=== PATIENT | male | born 1940 | race Caucasian/White ===

== ENCOUNTER 2020-11-14 15:28 | Outpatient (CLI) | payer MEDICARE ==
--- NOTE | 2020-11-14 16:54 | Ultrasound Report ---
PROCEDURE: Abdomen Limited INDICATIONS: RIGHT LOWER ABDOMEN MASS TECHNIQUE: Real-time focused scanning was performed of the abdomen, with image documentation. COMPARISON: None FINDINGS: Hernias identified in the region of clinical interest. Hernia contains unremarkable appear ing loops of bowel. Hernia is reducible in supine position and nonreducible in standing position. Her zoie neck measures approximately 0.7 x 0.5 cm. IMPRESSION: Bowel containing hernia identified in the area of clinical interest. Hernia is reducible in the supin e position and nonreducible in the standing position. Reviewed by: Jolanta Alejo MD, PhD on 11/14/2020 4:53 PM PDT Approved by: Jolanta Alejo MD, PhD on 11/14/2020 4:53 PM PDT Station ID: [id number]
== END 2020-11-14 15:29 | disposition home or self-care (01) ==
LOC: DI 15:28
PROVIDERS: ATTEND Physician Assistant
DX: K46.9 Unspecified abdominal hernia without obstruction or gangrene (principal)

== ENCOUNTER 2021-11-29 08:37 | Emergency (ER) | payer MEDICARE ==
[2021-11-29 08:49] VITALS: BP 146/71
--- NOTE | 2021-11-29 09:21 | ED Physician Documentation ---
PD HPI UPPER EXT INJURY - Stated complaint Stated Complaint: RT FINGER LAC - Chief complaint Chief Complaint: Laceration - History obtained from History obtained from: Patient - History of Present Illness Location: Right, Finger (middle) Where injury occurred: Other ([facility]) Timing - onset: Enter time (1400), Yesterday Timing - duration: Days (1) Timing - details: Abrupt onset, Still present Improved by: Rest Worsened by: Moving, Palpating Associated symptoms: No: Weakness, Numbness, Tingling Contributing factors: No: Anticoagulated Similar symptoms before: Diagnosis (skin avulsion) Recently seen: Not recently seen - Additonal information Additional information: Previously well Elkin Kelly is an 81-year-old male who was at [facility] yesterday when a folding chair pinched the tip of his middle finger and tore a piece of skin from it. He was able to control the bleeding with tape and gauze and comes in this morning for evaluation. There does appear to be a piece of skin missing. Review of Systems Constitutional: denies: Fever Respiratory: denies: Cough GI: denies: Vomiting Skin: reports: Laceration (s) Musculoskeletal: reports: Extremity pain. denies: Neck pain, Back pain PD PAST MEDICAL HISTORY - Allergies Allergies/Adverse Reactions: Allergies Allergy/AdvReac Type Severity Reaction Status Date / Time Penicillins Allergy Unknown Verified 11/29/21 08:49 PD ED PE NORMAL - Vitals Vital signs reviewed: Yes (hypertensive mild ) - General General: Alert and oriented X 3, No acute distress, Well developed/nourished, Other (81 y/o male appears younger than stated age. ) - HEENT HEENT: Atraumatic, PERRL, EOMI - Respiratory Respiratory: No respiratory distress - Derm Derm: Normal color, Warm and dry, No rash - Extremities Extremities: Other (There is a skin avulsion of the right middle fingertip. There is about a 5mm x 8mm section of skin missing from the fingertip. ) - Neuro Neuro: Alert and oriented X 3, pyrotechnist 2-12 intact, No motor deficit, No sensory deficit, Normal speech Eye Opening: Spontaneous Motor: Obeys Commands Verbal: Oriented GCS Score: 15 - Psych Psych: Normal mood, Normal affect Results - Vitals Vitals: Vital Signs - 24 hr 11/29/21 08:41 Temperature 36.8 C Heart Rate 71 Respiratory 16 Rate Blood Pressure 146/71 H O2 Saturation 97 Oxygen O2 Source Room air PD MEDICAL DECISION MAKING - ED course Complexity details: reviewed results, re-evaluated patient, considered differential, d/w patient ED course: 81-year-old male with avulsion of skin from the fingertip of his middle finger is treated conservatively with wound care and dressing. He is given a tetanus booster Departure - Departure Disposition: 01 Home, Self Care Clinical Impression: Skin avulsion Condition: Stable Instructions: ED Avulsion Dermal Follow-Up: Roseline Donald MD [Provider Admit Priv/Credential] - Discharge Date/Time: 11/29/21 09:33
[2021-11-29] MEDS ORDERED: TETANUS/DIPHTHERIA/PERTUSSIS 0.5 ML SYRINGE IM ONE (09:27)
== END 2021-11-29 09:33 | disposition home or self-care (01) ==
LOC: ED 08:37
DX: S61.212A Laceration without foreign body of right middle finger without damage to nail, initial encounter (principal); W23.1XXA Caught, crushed, jammed, or pinched between stationary objects, initial encounter; Y93.89 Activity, other specified; Y92.22 Religious institution as the place of occurrence of the external cause
CPT/HCPCS: 90471; 99282; 99283